=== PATIENT | male | born 1960 | race Caucasian/White ===

== ENCOUNTER 2021-06-25 07:48 | Emergency (ER) | payer OTHER ==
[~2021-06-25] VITALS: Ht 177.8 cm; Wt 83.9 kg
[2021-06-25 07:52] VITALS: BP_SYST 153
--- NOTE | 2021-06-25 07:57 | NUR ---
Patient to ER bed 8 to gown for evaluation. Side rails up. Report given to Angeles DUDLEY.
--- NOTE | 2021-06-25 08:00 | NUR ---
ER DR. CANADA AT THE BEDSIDE EXAMINING PT
--- NOTE | 2021-06-25 08:05 | NUR ---
PT CAME INTO ER C/O LEFT FLANK PAIN STARTING EARLY THIS AM, PT STATES HE HAS HAD MULTIPLE KIDNEY STONES IN THE PAST WITH LITHOTRIPSY AND STENT PLACEMENT. STATES THE PAIN WAS UNBEARABLE AT HOME. PT IS AMBULATORY, AAOX4, VSS
[2021-06-25] MEDS ORDERED: KETOROLAC TROMETHAMINE 30 MG VIAL IVP ONE (08:15)
[2021-06-25] MEDS ORDERED: MORPHINE 4 MG INJ. 4 MG/ML VIAL IVP ONE (08:15)
[2021-06-25] MEDS ORDERED: ONDANSETRON HCL 4 MG/2 ML VIAL IVP ONE (08:15)
[2021-06-25] MEDS ORDERED: NACL 0.9% 1,000 ML IV ONE (08:15)
[2021-06-25 08:35] LABS: BASOPHILS # (AUTO) 0.1 K/uL (0.0-0.2); BASOPHILS % (AUTO) 0.9 % (0.0-2.0); EOSINOPHILS # (AUTO) 0.2 K/uL (0.0-0.4); EOSINOPHILS % (AUTO) 2.1 % (0.0-4.0); HEMATOCRIT 44.8 % (36-54); HEMOGLOBIN 14.9 g/dL (14.0-18.0); LYMPHOCYTES # (AUTO) 1.8 K/uL (1.0-5.5); LYMPHOCYTES % (AUTO) 17.4 % (20.5-51.5); MEAN CORPUSCULAR HEMOGLOBIN 30 pg (27-31); MEAN CORPUSCULAR HGB CONC 33 % (32-36); MEAN CORPUSCULAR VOLUME 89 fL (79.0-98.0); MONOCYTES # (AUTO) 0.6 K/uL (0.0-1.0); MONOCYTES % (AUTO) 5.5 % (1.7-9.3); NEUTROPHILS # (AUTO) 7.5 K/uL (1.8-7.7); NEUTROPHILS % (AUTO) 74.1 % (40.0-70.0); PLATELET COUNT (AUTO) 209 K/uL (130-430); RED BLOOD CELL COUNT(AUTO) 5.01 MIL/uL (4.2-6.2); RED CELL DISTRIBUTION WIDTH 14.1 % (9.0-15.0); WHITE BLOOD COUNT (AUTO) 10.1 K/uL (4.8-10.8)
[2021-06-25] MEDS ORDERED: HYDROmorphone 1 MG/ML INJ. CARTRIDGE IVP ONE (08:45)
--- NOTE | 2021-06-25 09:05 | NUR ---
ULTRASOUND AT THE BEDSIDE
[2021-06-25 09:16] LABS: CALCIUM 9.5 mg/dL (8.4-11.0); CREATININE 1.15 mg/dL (0.55-1.30); POTASSIUM 4.4 mmol/L (3.5-5.1)
[2021-06-25 09:45] LABS: ALBUMIN 4.1 g/dL (3.4-4.8); TOTAL BILIRUBIN 0.4 mg/dL (0.0-1.0)
--- NOTE | 2021-06-25 10:00 | NUR ---
PT VOIDED IN BEDSIDE URINAL FOR URINE SPECIMEN
[2021-06-25 10:13] LABS: BILIRUBIN,URINE NEGATIVE (NEGATIVE); BLOOD, URINE NEGATIVE (NEGATIVE); CLARITY/URINE CLEAR (CLEAR); COLOR,URINE YELLOW (YELLOW); GLUCOSE,URINE NEGATIVE (NEGATIVE); KETONES,URINE NEGATIVE (NEGATIVE); LEUKOCYTE ESTERASE ,URINE NEGATIVE (NEGATIVE); NITRITE, URINE NEGATIVE (NEGATIVE); PROTEIN URINE NEGATIVE (NEGATIVE); UROBILINOGEN,URINE 0.2 (0.2-1.0)
[2021-06-25 10:48] VITALS: BP_SYST 153
== END 2021-06-25 10:48 | disposition home or self-care (01) ==
LOC: SED 07:48
DX: R10.9 Unspecified abdominal pain (principal); R74.8 Abnormal levels of other serum enzymes; Z88.8 Allergy status to other drugs, medicaments and biological substances
CPT/HCPCS: 36415; 76770; 80053; 81003; 83690; 85025; 96361; 96374; 96375; 99284; G0482; J1170; J1885; J2270; J2405; J7030

== ENCOUNTER 2021-06-27 05:36 | Emergency (ER) | payer OTHER ==
[~2021-06-27] VITALS: Ht 172.7 cm; Wt 81.6 kg
[2021-06-27 05:45] VITALS: BP_SYST 162
--- NOTE | 2021-06-27 05:53 | NUR ---
Patient to ER bed 3 to gown for evaluation. Side rails up. Report given to Jennifer DUDLEY (reg).
--- NOTE | 2021-06-27 05:55 | NUR ---
ER at bedside examining patient.
[2021-06-27 05:56] VITALS: BP_SYST 119
--- NOTE | 2021-06-27 05:56 | NUR ---
Pt alert and orieted x 4 , Pain 10/10 related to kidney stones , pt states started at 0400
[2021-06-27] MEDS ORDERED: NACL 0.9% 1,000 ML IV ONE (06:15)
[2021-06-27] MEDS ORDERED: MORPHINE 4 MG INJ. 4 MG/ML VIAL IVP ONE (06:15)
[2021-06-27] MEDS ORDERED: KETOROLAC TROMETHAMINE 30 MG VIAL IVP ONE (06:15)
[2021-06-27] MEDS ORDERED: ONDANSETRON HCL 4 MG/2 ML VIAL IVP ONE (06:30)
[2021-06-27] MEDS: MORPHINE 4 MG INJ. 4 MG/ML VIAL IVP PRN ×2 (06:45→08:05)
--- NOTE | 2021-06-27 07:14 | NUR ---
bedside report to carmen
--- NOTE | 2021-06-27 07:25 | NUR ---
Report rcvd at bedside from outgoing noc RN, all cares assumed (OCTAVIA Fisher)
[2021-06-27 07:27] LABS: BASOPHILS # (AUTO) 0.1 K/uL (0.0-0.2); BASOPHILS % (AUTO) 0.6 % (0.0-2.0); CALCIUM 8.8 mg/dL (8.4-11.0); CREATININE 1.04 mg/dL (0.55-1.30); EOSINOPHILS # (AUTO) 0.2 K/uL (0.0-0.4); EOSINOPHILS % (AUTO) 2.2 % (0.0-4.0); HEMATOCRIT 39.1 % (36-54); HEMOGLOBIN 13.2 g/dL (14.0-18.0); LYMPHOCYTES # (AUTO) 1.4 K/uL (1.0-5.5); LYMPHOCYTES % (AUTO) 13.3 % (20.5-51.5); MEAN CORPUSCULAR HEMOGLOBIN 30 pg (27-31); MEAN CORPUSCULAR HGB CONC 34 % (32-36); MEAN CORPUSCULAR VOLUME 90 fL (79.0-98.0); MONOCYTES # (AUTO) 0.7 K/uL (0.0-1.0); MONOCYTES % (AUTO) 6.4 % (1.7-9.3); NEUTROPHILS # (AUTO) 8.3 K/uL (1.8-7.7); NEUTROPHILS % (AUTO) 77.5 % (40.0-70.0); PLATELET COUNT (AUTO) 168 K/uL (130-430); POTASSIUM 4.2 mmol/L (3.5-5.1); RED BLOOD CELL COUNT(AUTO) 4.37 MIL/uL (4.2-6.2); WHITE BLOOD COUNT (AUTO) 10.8 K/uL (4.8-10.8)
[2021-06-27 07:32] LABS: ALBUMIN 3.4 g/dL (3.4-4.8); BILIRUBIN,DIRECT 0.1 mg/dL (0.0-0.3); TOTAL BILIRUBIN 0.2 mg/dL (0.0-1.0)
--- NOTE | 2021-06-27 07:46 | NUR ---
Patient taken to CT scan by Pia via W/C
--- NOTE | 2021-06-27 08:07 | NUR ---
Patient medicated with 4mg Morphine IVP per MD, patient reports 10/10 pain, patient grimacing, noted to be tearful. Patient remains on monitor, vitals stable, will continue to monitor.
--- NOTE | 2021-06-27 08:30 | NUR ---
Patient has been re-assessed, medication found to be effective
--- NOTE | 2021-06-27 09:05 | NUR ---
Patient report 3/10 pain, patient attempting to give urine sample.
--- NOTE | 2021-06-27 09:08 | NUR ---
Urine collected and dipped per
[2021-06-27] MEDS ORDERED: CEPH250C PO (09:15)
--- NOTE | 2021-06-27 09:17 | NUR ---
Urine dip results given to for review
--- NOTE | 2021-06-27 09:21 | NUR ---
Patient given written and verbal discharge instructions and verbalizes understanding. ER MD discussed with patient the results and treatment provided. Patient in stable condition. ID arm band removed. IV catheter removed intact and dressing applied, no active bleeding. Rx of given. Patient educated on pain management and to follow up with PMD. Pain Scale 2/10 Opportunity for questions provided and answered. Medication side effect fact sheet provided.
[2021-06-27 09:22] VITALS: BP_SYST 122
== END 2021-06-27 09:21 | disposition home or self-care (01) ==
LOC: SED 05:36
DX: N39.0 Urinary tract infection, site not specified (principal); N23 Unspecified renal colic; Z88.8 Allergy status to other drugs, medicaments and biological substances; Z79.899 Other long term (current) drug therapy
CPT/HCPCS: 36415; 74176; 76376; 80048; 80076; 81002; 83690; 85025; 96361; 96374; 96375; 96376; 99285; J1885; J2270; J2405; J7030

== ENCOUNTER 2021-08-09 10:54 | Inpatient (IN) | payer OTHER ==
[~2021-08-09] VITALS: Ht 177.8 cm; Wt 86.2 kg
[~2021-08-09 10:54] MED LIST: CEPH250C PO
[2021-08-09 10:55] VITALS: BP_SYST 140
--- NOTE | 2021-08-09 11:37 | NUR ---
Pt present to ED with complaint of L flank pain rated 8/10. status post prostectomy 1 week. AOx4 GCS 15. 20G IV intitiated. Pt presen to ED with shannon in place. Pt seen by ED physician at bedside.
[2021-08-09] MEDS ORDERED: KETOROLAC TROMETHAMINE 30 MG VIAL IVP ONE (11:45)
[2021-08-09] MEDS ORDERED: NACL 0.9% 1,000 ML IV ONE (11:45)
[2021-08-09] MEDS ORDERED: MORPHINE SULFATE 10 MG/ML VIAL IVP ONE (11:45)
[2021-08-09] MEDS ORDERED: ONDANSETRON HCL 4 MG/2 ML VIAL IVP ONE ×2 (11:45)
[2021-08-09 11:59] LABS: BASOPHILS # (AUTO) 0.1 K/uL (0.0-0.2); BASOPHILS % (AUTO) 0.6 % (0.0-2.0); EOSINOPHILS # (AUTO) 0.5 K/uL (0.0-0.4); EOSINOPHILS % (AUTO) 3.5 % (0.0-4.0); HEMATOCRIT 41.7 % (36-54); HEMOGLOBIN 14.2 g/dL (14.0-18.0); LYMPHOCYTES # (AUTO) 1.8 K/uL (1.0-5.5); LYMPHOCYTES % (AUTO) 13.3 % (20.5-51.5); MEAN CORPUSCULAR HEMOGLOBIN 31 pg (27-31); MEAN CORPUSCULAR HGB CONC 34 % (32-36); MEAN CORPUSCULAR VOLUME 90 fL (79.0-98.0); MONOCYTES # (AUTO) 0.9 K/uL (0.0-1.0); MONOCYTES % (AUTO) 7.1 % (1.7-9.3); NEUTROPHILS % (AUTO) 75.5 % (40.0-70.0); PLATELET COUNT (AUTO) 211 K/uL (130-430); RED BLOOD CELL COUNT(AUTO) 4.66 MIL/uL (4.2-6.2); RED CELL DISTRIBUTION WIDTH 13.8 % (9.0-15.0); WHITE BLOOD COUNT (AUTO) 13.2 K/uL (4.8-10.8)
[2021-08-09 12:04] LABS: CALCIUM 8.9 mg/dL (8.4-11.0); CREATININE 1.17 mg/dL (0.55-1.30); POTASSIUM 3.9 mmol/L (3.5-5.1)
[2021-08-09 12:10] LABS: ALBUMIN 3.5 g/dL (3.4-4.8)
[2021-08-09 13:16] LABS: BILIRUBIN,URINE NEGATIVE (NEGATIVE); BLOOD, URINE 1+ (NEGATIVE); CLARITY/URINE CLOUDY (CLEAR); COLOR,URINE YELLOW (YELLOW); GLUCOSE,URINE NEGATIVE (NEGATIVE); KETONES,URINE NEGATIVE (NEGATIVE); LEUKOCYTE ESTERASE ,URINE TRACE (NEGATIVE); NITRITE, URINE NEGATIVE (NEGATIVE); PROTEIN URINE 2+ (NEGATIVE)
[2021-08-09 13:53] LABS: BACTERIA,URINE FEW /HPF (None Seen)
[2021-08-09] MEDS ORDERED: cefTRIAXone 1 GM in D5W 50 ML IV ONE (14:15)
[2021-08-09] MEDS ORDERED: cefTRIAXone 1 GM VIAL ONE (14:17)
--- NOTE | 2021-08-09 15:09 | NUR ---
Admit bed requested Patient will be admitted to care of Admitted to MEDSURG unit. Diagnosis UTI Inpatient (Yes or No) YES Observation (Yes or No) Orientation concerns or request close to nursing station (Yes or No) Covid Status On vent or bipap Isolation requirements Needs a sitter From Home (Yes or if No enter name of facility) Requires Dialysis (Yes or No) Med Rec Completed (Yes of No)
[2021-08-09] MEDS ORDERED: MORPHINE 2 MG/ML INJ. SYRINGE IVP PRN ×2 (15:15→16:30)
[2021-08-09] MEDS: NACL 0.9% 1,000 ML IV SCH (15:31)
--- NOTE | 2021-08-09 16:20 | NUR ---
Telephone report called to Naresh Cooper @ [phone].
[2021-08-09] MEDS ORDERED: MAGNESIUM SULFATE 50 ML IV PRN (16:30)
[2021-08-09] MEDS ORDERED: MUPIROCIN 2% TOPICAL OINTMENT 22 GM NS PRN (16:30)
[2021-08-09] MEDS ORDERED: LORazepam 2 MG/ML VIAL IVP PRN (16:30)
[2021-08-09] MEDS ORDERED: ACETAMINOPHEN 325 MG TABLET PO PRN (16:30)
[2021-08-09] MEDS ORDERED: DOCUSATE SODIUM 100 MG CAPSULE PO PRN (16:30)
[2021-08-09] MEDS ORDERED: ZOLPIDEM TARTRATE 5 MG TABLET PO PRN (16:30)
[2021-08-09] MEDS ORDERED: POTASSIUM CHLORIDE 20 MEQ TAB.PRT.SR PO PRN (16:30)
[2021-08-09] MEDS ORDERED: NALOXONE HCL 0.4 MG/ML AMP (NARCAN) IVP PRN ×3 (16:30→19:45)
[2021-08-09] MEDS ORDERED: ONDANSETRON HCL 4 MG/2 ML VIAL IVP PRN (16:30)
--- NOTE | 2021-08-09 16:40 | NUR ---
patient discharged, taken home by mother, education provided to both, voiced understanding, stable at time of discharge, all belongings with patient, both ivs removed, transferred to car in wheelchair.
--- NOTE | 2021-08-09 16:42 | NUR ---
Patient will be admitted to care of Dr. Patton. Admitted to Med-surg unit. Will go to room 123B. Belongings list completed. Complete and up to date summary report printed. SBAR report to be given via telephone to Naresh DUDLEY .
--- NOTE | 2021-08-09 16:42 | NUR ---
Pt transported out of ED by EDT in no acute distress AOx4 GCS 15. IV in place infusing NS @ 100cc/hr.
--- NOTE | 2021-08-09 16:45 | NUR ---
patient admitted to med surg, no s/s of distress, a/ox4, ambulatory, shannon catheter, will admit. report from theresa from ER
[2021-08-09] MEDS ORDERED: DICYCLOMINE HCL 10 MG CAPSULE PO ONE (17:45)
[2021-08-09] MEDS ORDERED: DICYCLOMINE HCL 20 MG/2 ML AMP IM ONE (18:00)
[2021-08-09] MEDS ORDERED: cefTRIAXone 1 GM in D5W 50 ML IV SCH (18:00)
--- NOTE | 2021-08-09 18:18 | NUR ---
ASKED PHARMACY TO VERIFY IF PATIENT CAN BE GIVEN THE MORPHINE 1MG FOR BREAK THROUGH PAIN WITHIN THE 4 HOURS OF HAVING GIVEN THE 2MG OF MORPHINE IVP. PHARMACIST STATED IT IS OK TO GIVE THE MORPHINE 1MG NOW EVEN THOUGH IT HAS ONLY BEEN 2 HOURS SINCE THE 2MG IVP OF MORPHINE.
[2021-08-09 18:20] VITALS: BP_SYST 153
[2021-08-09] MEDS ORDERED: ASA81 PO (18:48)
[2021-08-09] MEDS ORDERED: OMEP20CA15 PO (18:48)
[2021-08-09] MEDS ORDERED: TAMS-11 PO (18:48)
--- NOTE | 2021-08-09 19:30 | NUR ---
OPENING NOTES: Patient received from AM shift. Patient is AA&Ox4 able to make needs known denies any chest pain or SOB. Chest rise is even and unlabored on RA. Normal hear sounds present on medsurg monitoring. Active bowel sounds x4, denies pain with palpation. Reports flank pain at 8/10. Patient is ambulatory and continent of bowel and bladder. Will administer pain relief for patient comfort as ordered. Will resume care and continue to monitor throughout the shift.
[2021-08-09] MEDS ORDERED: HYDROcodone/ACETAMIN 10-325 MG TAB PO PRN (19:45)
[2021-08-09 20:00] VITALS: BP_SYST 151
[2021-08-09] MEDS: MORPHINE 2 MG/ML INJ. SYRINGE IVP PRN (20:08)
[2021-08-09] MEDS: DICYCLOMINE HCL 10 MG CAPSULE PO SCH (20:48)
[2021-08-10 02:00] VITALS: BP_SYST 117
--- NOTE | 2021-08-10 06:23 | NUR ---
CLOSING NOTES: Patient is in bed resting no s/s of distress is noted at this time. Patient is AA&Ox4 able to make needs known, currently denies any pain or discomfort. All current shift needs have been met at this time and patient is stable. Safety protocols are in place and call light is within reach. Will differ further care to AM shift for continuity of care.
[2021-08-10 06:24] LABS: BASOPHILS % (AUTO) 0.5 % (0.0-2.0); EOSINOPHILS # (AUTO) 0.6 K/uL (0.0-0.4); EOSINOPHILS % (AUTO) 5.8 % (0.0-4.0); HEMATOCRIT 37.2 % (36-54); HEMOGLOBIN 12.8 g/dL (14.0-18.0); LYMPHOCYTES # (AUTO) 2.1 K/uL (1.0-5.5); MEAN CORPUSCULAR HEMOGLOBIN 31 pg (27-31); MEAN CORPUSCULAR HGB CONC 34 % (32-36); MEAN CORPUSCULAR VOLUME 90 fL (79.0-98.0); MONOCYTES # (AUTO) 0.9 K/uL (0.0-1.0); MONOCYTES % (AUTO) 8.7 % (1.7-9.3); NEUTROPHILS # (AUTO) 6.3 K/uL (1.8-7.7); PLATELET COUNT (AUTO) 182 K/uL (130-430); RED BLOOD CELL COUNT(AUTO) 4.12 MIL/uL (4.2-6.2); RED CELL DISTRIBUTION WIDTH 13.8 % (9.0-15.0); WHITE BLOOD COUNT (AUTO) 9.8 K/uL (4.8-10.8)
[2021-08-10 06:43] LABS: ALBUMIN 2.8 g/dL (3.4-4.8); CALCIUM 7.5 mg/dL (8.4-11.0); CREATININE 1.03 mg/dL (0.55-1.30); POTASSIUM 3.9 mmol/L (3.5-5.1); TOTAL BILIRUBIN 0.6 mg/dL (0.0-1.0)
--- NOTE | 2021-08-10 07:30 | NUR ---
PATIENT IN BED, NO S/S OF DISTRESS, A/O X4, PAIN 3/10 AT THIS TIME AND DOES NOT WANT ANY PAIN MEDICATION, ON ROOM AIR, ABDOMINAL INCISION CLEAN DRY INTACT, TO DRAINING CLEAR YELLOW URINE, SAFETY MEASURES IN PLACE, BED IN LOWEST LOCKED POSITION, CALL LIGHT WITHIN REACH WILL CONTINUE TO MONITOR.
[2021-08-10 08:00] VITALS: BP_SYST 133
[2021-08-10] MEDS: PANTOPRAZOLE SODIUM 40 MG TAB PO SCH (08:52)
[2021-08-10] MEDS: DICYCLOMINE HCL 10 MG CAPSULE PO SCH ×3 (08:52→20:56)
[2021-08-10 12:51] VITALS: BP_SYST 125
[2021-08-10] MEDS: NACL 0.9% 1,000 ML IV SCH ×2 (15:24→22:44)
[2021-08-10 16:30] VITALS: BP_SYST 128
--- NOTE | 2021-08-10 19:31 | NUR ---
OPENING NOTES: Patient received from AM shift. Patient is AA&Ox4 able to verbalize needs and denies any pain or discomfort at this time. Chest rise is even and unlabored on RA. Normal heart sounds present on Med surg monitoring. FC noted in place and draining yellow urine. Patient is disgruntled due to maintenance issue with the window of his room. Patient was offered many alternative in room selection but is is hard to please. Patient was then placed into room 118B and seems to be ok with current arrangement. Safety protocols have been placed and patient has call light within reach. Will continue to monitor throughout the shift.
[2021-08-10 20:00] VITALS: BP_SYST 129
[2021-08-10] MEDS: MORPHINE 2 MG/ML INJ. SYRINGE IVP PRN (22:41)
[2021-08-11 00:01] VITALS: BP_SYST 114; BP_SYST 157
--- NOTE | 2021-08-11 06:56 | NUR ---
CLOSING NOTES: Patient is in bed resting no s/s of distress is noted at this time. Patient is AA&Ox4 able to verbalize needs. All current shift needs have been met at this time. Safety protocols are in place and patient has call light within reach. Will differ further care to AM shift for continuity of care.
[2021-08-11 08:00] VITALS: BP_SYST 133
[2021-08-11 08:33] LABS: BASOPHILS # (AUTO) 0.1 K/uL (0.0-0.2); BASOPHILS % (AUTO) 0.6 % (0.0-2.0); EOSINOPHILS # (AUTO) 0.6 K/uL (0.0-0.4); EOSINOPHILS % (AUTO) 5.8 % (0.0-4.0); HEMATOCRIT 39.5 % (36-54); HEMOGLOBIN 13.6 g/dL (14.0-18.0); LYMPHOCYTES # (AUTO) 1.4 K/uL (1.0-5.5); LYMPHOCYTES % (AUTO) 13.3 % (20.5-51.5); MEAN CORPUSCULAR HEMOGLOBIN 31 pg (27-31); MEAN CORPUSCULAR HGB CONC 35 % (32-36); MEAN CORPUSCULAR VOLUME 89 fL (79.0-98.0); MONOCYTES # (AUTO) 0.6 K/uL (0.0-1.0); MONOCYTES % (AUTO) 5.9 % (1.7-9.3); NEUTROPHILS # (AUTO) 8.1 K/uL (1.8-7.7); NEUTROPHILS % (AUTO) 74.4 % (40.0-70.0); PLATELET COUNT (AUTO) 216 K/uL (130-430); RED BLOOD CELL COUNT(AUTO) 4.43 MIL/uL (4.2-6.2); RED CELL DISTRIBUTION WIDTH 13.8 % (9.0-15.0); WHITE BLOOD COUNT (AUTO) 10.9 K/uL (4.8-10.8)
[2021-08-11] MEDS: PANTOPRAZOLE SODIUM 40 MG TAB PO SCH (08:34)
[2021-08-11] MEDS: DICYCLOMINE HCL 10 MG CAPSULE PO SCH ×2 (08:34→15:07)
[2021-08-11 09:08] LABS: CALCIUM 8.7 mg/dL (8.4-11.0); CREATININE 1.05 mg/dL (0.55-1.30); POTASSIUM 3.8 mmol/L (3.5-5.1)
[2021-08-11 12:57] VITALS: BP_SYST 121; BP_SYST 149
[2021-08-11] MEDS: NACL 0.9% 1,000 ML IV SCH (15:08)
[2021-08-11 16:11] VITALS: BP_SYST 123
[2021-08-11] MEDS ORDERED: LEVO500T90 PO (17:28)
[2021-08-11 17:38] VITALS: BP_SYST 125
== END 2021-08-11 18:20 | disposition home or self-care (01) | DRG 690 ==
LOC: SED 10:54 → SMU 15:02
PROVIDERS: ADMIT General Practice; ATTEND General Practice
DX: N12 Tubulo-interstitial nephritis, not specified as acute or chronic (principal); C61 Malignant neoplasm of prostate; Z20.822 Contact with and (suspected) exposure to COVID-19; Z88.8 Allergy status to other drugs, medicaments and biological substances; Z79.899 Other long term (current) drug therapy; Z85.46 Personal history of malignant neoplasm of prostate; Z87.442 Personal history of urinary calculi; Z90.79 Acquired absence of other genital organ(s)
CPT/HCPCS: 36415; 71045; 76376; 80048; 80053; 81000; 83036; 83605; 83690; 83735; 85025; 87040; 87086; 93005; 96365; 96375; 96376; 99291; J0500; J0696; J1885; J1956; J2270; J2405; J7030; J7060

== ENCOUNTER 2021-08-13 13:53 | Inpatient (IN) | payer OTHER ==
[~2021-08-13] VITALS: Ht 177.8 cm; Wt 86.2 kg
[~2021-08-13 13:53] MED LIST changes: +ASA81 PO; -CEPH250C PO; +LEVO500T90 PO; +OMEP20CA15 PO; +TAMS-11 PO
[2021-08-13 14:22] VITALS: BP_SYST 147
--- NOTE | 2021-08-13 14:22 | NUR ---
Patient to ER bed 3 for evaluation. Side rails up. Report given to Tim DUDLEY.
[2021-08-13] MEDS ORDERED: NACL 0.9% 1,000 ML IV ONE (14:30)
[2021-08-13] MEDS ORDERED: MORPHINE 4 MG INJ. 4 MG/ML VIAL IVP ONE (14:30)
[2021-08-13] MEDS ORDERED: KETOROLAC TROMETHAMINE 30 MG VIAL IVP ONE (14:30)
--- NOTE | 2021-08-13 14:44 | NUR ---
Pt present to ED with complaint of flank pain and suprapubic pain rated 10/10. 20G IV initiated in field. ED physician seen pt at bedside
[2021-08-13] MEDS ORDERED: LIDOCAINE JECT 2% PF 100 MG/5ML SYRINGE IV ONE (14:45)
[2021-08-13 14:53] LABS: BASOPHILS # (AUTO) 0.1 K/uL (0.0-0.2); BASOPHILS % (AUTO) 1.4 % (0.0-2.0); EOSINOPHILS # (AUTO) 0.1 K/uL (0.0-0.4); EOSINOPHILS % (AUTO) 1.4 % (0.0-4.0); HEMATOCRIT 42.7 % (36-54); HEMOGLOBIN 14.4 g/dL (14.0-18.0); LYMPHOCYTES # (AUTO) 0.5 K/uL (1.0-5.5); LYMPHOCYTES % (AUTO) 5.6 % (20.5-51.5); MEAN CORPUSCULAR HEMOGLOBIN 30 pg (27-31); MEAN CORPUSCULAR HGB CONC 34 % (32-36); MEAN CORPUSCULAR VOLUME 90 fL (79.0-98.0); MONOCYTES # (AUTO) 0.4 K/uL (0.0-1.0); MONOCYTES % (AUTO) 4.2 % (1.7-9.3); NEUTROPHILS # (AUTO) 8.2 K/uL (1.8-7.7); NEUTROPHILS % (AUTO) 87.4 % (40.0-70.0); PLATELET COUNT (AUTO) 243 K/uL (130-430); RED BLOOD CELL COUNT(AUTO) 4.74 MIL/uL (4.2-6.2); RED CELL DISTRIBUTION WIDTH 14.3 % (9.0-15.0); WHITE BLOOD COUNT (AUTO) 9.4 K/uL (4.8-10.8)
[2021-08-13 14:58] LABS: CALCIUM 8.9 mg/dL (8.4-11.0); CREATININE 1.38 mg/dL (0.55-1.30); POTASSIUM 4.1 mmol/L (3.5-5.1)
[2021-08-13] MEDS ORDERED: ONDANSETRON HCL 4 MG/2 ML VIAL IVP ONE (15:00)
[2021-08-13 15:04] LABS: ALBUMIN 3.9 g/dL (3.4-4.8); TOTAL BILIRUBIN 0.3 mg/dL (0.0-1.0)
[2021-08-13] MEDS: MORPHINE 4 MG INJ. 4 MG/ML VIAL IVP PRN ×2 (16:10→18:54)
[2021-08-13] MEDS ORDERED: ONDANSETRON HCL 4 MG/2 ML VIAL IVP PRN (18:45)
[2021-08-13] MEDS ORDERED: KETAMINE 30 MG/3 ML SYRINGE 30 MG in NS 100 ML IV ONE (19:00)
[2021-08-13] MEDS ORDERED: MORPHINE 2 MG/ML INJ. SYRINGE IVP PRN (19:00)
[2021-08-13] MEDS ORDERED: 0.45% NACL 1,000 ML IV ONE (19:00)
--- NOTE | 2021-08-13 19:12 | NUR ---
Recieved report from OCTAVIA Dumont
[2021-08-13 19:53] VITALS: BP_SYST 122
[2021-08-13] MEDS ORDERED: PIPERACILLIN/TAZO 4.5 GM in NS 100 ML IV SCH (20:00)
--- NOTE | 2021-08-13 20:06 | NUR ---
Admit bed requested Patient will be admitted to care of Dr. Garcia. Admitted to med surg unit. Diagnosis kidney stones Inpatient (Yes or No) yes Observation (Yes or No) no Orientation concerns or request close to nursing station (Yes or No) no Covid Status neg On vent or bipap n/a Isolation requirements n/a Needs a sitter n/a From Home (Yes or if No enter name of facility) yes Requires Dialysis (Yes or No) n/a Med Rec Completed (Yes of No) n/a
--- NOTE | 2021-08-13 20:13 | NUR ---
Patient does not wish to proceed with medical care recommended by Dr. Baugh. Patient given information related to possible complications, up to and including , which could occur as a result of leaving hospital at this time. Patient verbalizes understanding of risks involved leaving against medical advice. Patient has signed AMA form. IV taken out and no issues at this time.
== END 2021-08-13 20:13 | disposition left against medical advice (07) | DRG 684 ==
LOC: SED 13:53 → SMU 18:47
PROVIDERS: ADMIT Internal Medicine Infectious Disease; ATTEND Internal Medicine Infectious Disease
DX: N17.9 Acute kidney failure, unspecified (principal); Z20.822 Contact with and (suspected) exposure to COVID-19; Z79.82 Long term (current) use of aspirin; Z79.899 Other long term (current) drug therapy; Z90.79 Acquired absence of other genital organ(s)
CPT/HCPCS: 36415; 76770; 80053; 83605; 85025; 87040; 96374; 99285; J1885; J2270; J2405

== ENCOUNTER 2021-10-05 07:24 | Emergency (ER) | payer OTHER ==
[~2021-10-05] VITALS: Ht 180.3 cm; Wt 36.7 kg
[2021-10-05] MEDS ORDERED: KETOROLAC TROMETHAMINE 30 MG VIAL IVP ONE (07:45)
[2021-10-05] MEDS ORDERED: NACL 0.9% 1,000 ML IV ONE (07:45)
[2021-10-05 07:50] VITALS: BP_SYST 160
--- NOTE | 2021-10-05 07:50 | NUR ---
PT BEING SEEN FOR C/O ABDOMINAL, GROIN, AND LEFT LEG 11/13. PT HAS HX OF KIDNEY STONES. PT IA AAOX4. ON R/A. NO COUGH OR SOB. ABDOMEN TENDER. DENIES N/V/D/C. IV CATH PLACED TO LAC 20G. LABS DRAWN, PT ENDORSED TO OCTAVIA DUCKWORTH.
[2021-10-05 07:54] LABS: BASOPHILS # (AUTO) 0.1 K/uL (0.0-0.2); BASOPHILS % (AUTO) 1.3 % (0.0-2.0); EOSINOPHILS # (AUTO) 0.2 K/uL (0.0-0.4); EOSINOPHILS % (AUTO) 1.6 % (0.0-4.0); HEMATOCRIT 39.9 % (36-54); HEMOGLOBIN 13.5 g/dL (14.0-18.0); LYMPHOCYTES # (AUTO) 3.4 K/uL (1.0-5.5); LYMPHOCYTES % (AUTO) 30.1 % (20.5-51.5); MEAN CORPUSCULAR HEMOGLOBIN 31 pg (27-31); MEAN CORPUSCULAR HGB CONC 34 % (32-36); MEAN CORPUSCULAR VOLUME 90 fL (79.0-98.0); MONOCYTES # (AUTO) 0.9 K/uL (0.0-1.0); MONOCYTES % (AUTO) 8.1 % (1.7-9.3); NEUTROPHILS # (AUTO) 6.7 K/uL (1.8-7.7); NEUTROPHILS % (AUTO) 58.9 % (40.0-70.0); PLATELET COUNT (AUTO) 205 K/uL (130-430); RED BLOOD CELL COUNT(AUTO) 4.44 MIL/uL (4.2-6.2); RED CELL DISTRIBUTION WIDTH 13.6 % (9.0-15.0); WHITE BLOOD COUNT (AUTO) 11.3 K/uL (4.8-10.8)
--- NOTE | 2021-10-05 07:57 | NUR ---
WALKED TO BED7 WITH CO LISA. FLANK, HX OF KIDNEY STONE. PT WAS ADMINISTERED WITH TORADOL PER MD ORDER. PT WAS TAKEN TO XRAY. PT STILL CO OF PAIN. DR. GARDNER AWARE.
[2021-10-05] MEDS ORDERED: PROCHLORPERAZINE EDISYLATE 10 MG/2 ML VIAL IVP ONE (08:15)
[2021-10-05] MEDS ORDERED: MORPHINE 4 MG INJ. 4 MG/ML VIAL IVP ONE ×2 (08:15→09:00)
[2021-10-05] MEDS ORDERED: KETAMINE 30 MG/3 ML SYRINGE IVP ONE (08:15)
[2021-10-05 08:24] LABS: CREATININE 1.24 mg/dL (0.55-1.30); POTASSIUM 4.2 mmol/L (3.5-5.1)
--- NOTE | 2021-10-05 08:27 | NUR ---
MORPHINE AND COMPAZINE ORDERED AND GIVEN. PT STATED PAIN STOPPED. KATAMINE ISN'T GIVEN SINCE PAIN STOPPED.
[2021-10-05 08:29] LABS: ALBUMIN 3.7 g/dL (3.4-4.8); TOTAL BILIRUBIN 0.2 mg/dL (0.0-1.0)
[2021-10-05] MEDS ORDERED: DIPHENHYDRAMINE INJ 50 MG/ML VIAL IVP ONE (09:00)
[2021-10-05 09:50] LABS: BILIRUBIN,URINE NEGATIVE (NEGATIVE); BLOOD, URINE 3+ (NEGATIVE); CLARITY/URINE CLEAR (CLEAR); COLOR,URINE YELLOW (YELLOW); GLUCOSE,URINE NEGATIVE (NEGATIVE); KETONES,URINE NEGATIVE (NEGATIVE); LEUKOCYTE ESTERASE ,URINE NEGATIVE (NEGATIVE); NITRITE, URINE NEGATIVE (NEGATIVE); PROTEIN URINE NEGATIVE (NEGATIVE); UROBILINOGEN,URINE 0.2 (0.2-1.0)
[2021-10-05 10:00] LABS: BACTERIA,URINE RARE /HPF (None Seen); MUCUS,URINE 1+ /LPF (None Seen); WBC,URINE 0-3 /HPF (0-3)
[2021-10-05] MEDS ORDERED: ONDA-8 TL (11:02)
[2021-10-05] MEDS ORDERED: HYDR-3917 PO (11:02)
[2021-10-05 11:15] VITALS: BP_SYST 150
--- NOTE | 2021-10-05 11:27 | NUR ---
Patient given written and verbal discharge instructions and verbalizes understanding. ER MD discussed with patient the results and treatment provided. Patient in stable condition. ID arm band removed. IV catheter removed intact and dressing applied, no active bleeding. Rx of HYDROCODONE, ZOFRAN given. Patient educated on pain management and to follow up with PMD. Pain Scale 4. Opportunity for questions provided and answered. Medication side effect fact sheet provided.
== END 2021-10-05 11:15 | disposition home or self-care (01) ==
LOC: SED 07:24
DX: N23 Unspecified renal colic (principal); N50.812 Left testicular pain; Z87.442 Personal history of urinary calculi; Z88.8 Allergy status to other drugs, medicaments and biological substances; Z79.899 Other long term (current) drug therapy
CPT/HCPCS: 99284; 74176; 96374; 96375; 96361; 80053; 81000; 85025; 36415; 76376; J1200; J1885; J0780; J2270; J7030

== ENCOUNTER 2021-12-08 08:12 | Inpatient (IN) | payer OTHER ==
[~2021-12-08] VITALS: Ht 177.8 cm; Wt 90.7 kg
[2021-12-08 08:12] VITALS: BP_SYST 162
[~2021-12-08 08:12] MED LIST changes: +HYDR-3917 PO; +LEVO-62 PO; -LEVO500T90 PO; +ONDA-8 TL
[2021-12-08 08:38] LABS: BASOPHILS # (AUTO) 0.1 K/uL (0.0-0.2); BASOPHILS % (AUTO) 1.2 % (0.0-2.0); EOSINOPHILS # (AUTO) 0.3 K/uL (0.0-0.4); EOSINOPHILS % (AUTO) 2.4 % (0.0-4.0); HEMATOCRIT 42.5 % (36-54); HEMOGLOBIN 14.7 g/dL (14.0-18.0); LYMPHOCYTES # (AUTO) 1.9 K/uL (1.0-5.5); LYMPHOCYTES % (AUTO) 18.3 % (20.5-51.5); MEAN CORPUSCULAR HEMOGLOBIN 31 pg (27-31); MEAN CORPUSCULAR HGB CONC 35 % (32-36); MEAN CORPUSCULAR VOLUME 89 fL (79.0-98.0); MONOCYTES # (AUTO) 0.6 K/uL (0.0-1.0); MONOCYTES % (AUTO) 5.9 % (1.7-9.3); NEUTROPHILS # (AUTO) 7.5 K/uL (1.8-7.7); NEUTROPHILS % (AUTO) 72.2 % (40.0-70.0); PLATELET COUNT (AUTO) 214 K/uL (130-430); RED BLOOD CELL COUNT(AUTO) 4.79 MIL/uL (4.2-6.2); RED CELL DISTRIBUTION WIDTH 13.6 % (9.0-15.0); WHITE BLOOD COUNT (AUTO) 10.4 K/uL (4.8-10.8)
[2021-12-08] MEDS ORDERED: NACL 0.9% 1,000 ML IV ONE (08:45)
[2021-12-08] MEDS ORDERED: MORPHINE SULFATE 10 MG/ML VIAL IVP ONE ×3 (08:45→12:00)
[2021-12-08 09:02] LABS: LIPASE 691 U/L (73-393)
[2021-12-08 09:07] LABS: CALCIUM 9.1 mg/dL (8.4-11.0); CREATININE 1.32 mg/dL (0.55-1.30); POTASSIUM 4.1 mmol/L (3.5-5.1)
[2021-12-08 09:13] LABS: ALBUMIN 3.9 g/dL (3.4-4.8); TOTAL BILIRUBIN 0.3 mg/dL (0.0-1.0)
[2021-12-08 09:38] LABS: ALCOHOL, BLOOD < 3 mg/dL (<10)
[2021-12-08] MEDS ORDERED: MORPHINE SULFATE 10 MG/ML VIAL IVP PRN (12:00)
[2021-12-08] MEDS: KCL 20 mEq in D5NS 1000 mL 1,000 ML IV SCH ×2 (12:23→23:44)
[2021-12-08 13:15] VITALS: BP_SYST 146
[2021-12-08 13:45] LABS: BILIRUBIN,URINE NEGATIVE (NEGATIVE); BLOOD, URINE 1+ (NEGATIVE); CLARITY/URINE CLEAR (CLEAR); COLOR,URINE YELLOW (YELLOW); GLUCOSE,URINE NEGATIVE (NEGATIVE); KETONES,URINE NEGATIVE (NEGATIVE); LEUKOCYTE ESTERASE ,URINE NEGATIVE (NEGATIVE); NITRITE, URINE NEGATIVE (NEGATIVE); PROTEIN URINE NEGATIVE (NEGATIVE); UROBILINOGEN,URINE 0.2 (0.2-1.0)
[2021-12-08 14:08] LABS: BACTERIA,URINE RARE /HPF (None Seen); MUCUS,URINE 1+ /LPF (None Seen); RBC,URINE 0-3 /HPF (0-3); WBC,URINE 0-3 /HPF (0-3)
[2021-12-08 16:00] VITALS: BP_SYST 146
[2021-12-08] MEDS: ONDANSETRON HCL 4 MG/2 ML VIAL IVP PRN ×2 (17:07→21:16)
[2021-12-08] MEDS ORDERED: MORPHINE 4 MG INJ. 4 MG/ML VIAL IVP PRN (19:30)
[2021-12-08] MEDS ORDERED: METOCLOPRAMIDE HCL 10 MG/2 ML VIAL IVP ONE (19:30)
[2021-12-08] MEDS ORDERED: PANTOPRAZOLE SODIUM 40 MG/VIAL (PROTONIX) IVP SCH (21:00)
[2021-12-08] MEDS ORDERED: ENOXAPARIN SODIUM 40 MG/0.4 ML SYRINGE SUBCUT SCH (21:00)
[2021-12-09 00:13] VITALS: BP_SYST 153
[2021-12-09 06:58] LABS: CALCIUM 8.5 mg/dL (8.4-11.0); CREATININE 1.07 mg/dL (0.55-1.30); POTASSIUM 3.7 mmol/L (3.5-5.1)
[2021-12-09 07:11] LABS: BASOPHILS # (AUTO) 0.1 K/uL (0.0-0.2); BASOPHILS % (AUTO) 0.7 % (0.0-2.0); EOSINOPHILS # (AUTO) 0.2 K/uL (0.0-0.4); EOSINOPHILS % (AUTO) 2.7 % (0.0-4.0); HEMATOCRIT 39.1 % (36-54); HEMOGLOBIN 13.4 g/dL (14.0-18.0); LYMPHOCYTES # (AUTO) 2.4 K/uL (1.0-5.5); LYMPHOCYTES % (AUTO) 28.6 % (20.5-51.5); MEAN CORPUSCULAR HEMOGLOBIN 31 pg (27-31); MEAN CORPUSCULAR HGB CONC 34 % (32-36); MEAN CORPUSCULAR VOLUME 90 fL (79.0-98.0); MONOCYTES # (AUTO) 0.6 K/uL (0.0-1.0); MONOCYTES % (AUTO) 7.2 % (1.7-9.3); NEUTROPHILS # (AUTO) 5.2 K/uL (1.8-7.7); NEUTROPHILS % (AUTO) 60.8 % (40.0-70.0); PLATELET COUNT (AUTO) 193 K/uL (130-430); RED BLOOD CELL COUNT(AUTO) 4.36 MIL/uL (4.2-6.2); RED CELL DISTRIBUTION WIDTH 13.2 % (9.0-15.0); WHITE BLOOD COUNT (AUTO) 8.5 K/uL (4.8-10.8)
[2021-12-09] MEDS ORDERED: KCL 20 mEq in D5NS 1000 mL 1,000 ML IV SCH (10:00)
== END 2021-12-09 08:42 | disposition left against medical advice (07) | DRG 440 ==
LOC: SED 08:12 → SMU 11:49
PROVIDERS: ADMIT Family Medicine; ATTEND Family Medicine
DX: K85.90 Acute pancreatitis without necrosis or infection, unspecified (principal); Z20.822 Contact with and (suspected) exposure to COVID-19; F17.210 Nicotine dependence, cigarettes, uncomplicated; Z85.46 Personal history of malignant neoplasm of prostate; Z90.79 Acquired absence of other genital organ(s); Z88.8 Allergy status to other drugs, medicaments and biological substances; Z79.899 Other long term (current) drug therapy
CPT/HCPCS: 36415; 74021; 76705; 80048; 80053; 81000; 82150; 83690; 83735; 85025; 96374; 96376; 99285; C9113; G0482; J1650; J2270; J2405; J2765

== ENCOUNTER 2022-03-29 20:00 | Emergency (ER) | payer OTHER ==
[~2022-03-29] VITALS: Ht 177.8 cm; Wt 90.7 kg
[~2022-03-29 20:00] MED LIST changes: -LEVO-62 PO
[2022-03-29 21:11] VITALS: BP_SYST 171
--- NOTE | 2022-03-29 21:19 | NUR ---
Patient triaged and placed in waiting room. VSS and patient appears in no acute distress at this time. Accompanied by , awaiting available bed, and MD notified of need for MSE.
--- NOTE | 2022-03-29 21:20 | NUR ---
RIMMA WILLARD Kwaw at bedside.
--- NOTE | 2022-03-29 21:25 | NUR ---
Patient to ER bed 8 to gown for evaluation. Side rails up. Report given to OCTAVIA Park.
--- NOTE | 2022-03-29 22:15 | NUR ---
Patient presents to ED from home with c/o trigeminal nerve pain to the Left side of face. Patient reports pain level 10/10 at this time. Patient reports nausea, denies vomiting. Patient A/Ox4, VSS, ambulatory, resp even and unlabored. Patient's at bedside. Patient resting in bed with safety precautions in place and connected to monitor. Nad noted at this time. ER MD Chávez made aware.
[2022-03-29] MEDS ORDERED: KETOROLAC TROMETHAMINE 60 MG/2 ML VIAL IM ONE (22:30)
[2022-03-29] MEDS ORDERED: MORPHINE 4 MG INJ. 4 MG/ML VIAL IM ONE (22:30)
[2022-03-29] MEDS ORDERED: ONDANSETRON 4 MG ODT TAB PO ONE (22:45)
--- NOTE | 2022-03-29 23:00 | NUR ---
Patient resting in bed with safety precautions in place and connected to monitor. Nad noted at this time.
[2022-03-29 23:24] VITALS: BP_SYST 165
--- NOTE | 2022-03-29 23:24 | NUR ---
Patient given written and verbal discharge instructions and verbalizes understanding. ER MD discussed with patient the results and treatment provided. Patient in stable condition. ID arm band removed. Patient educated on pain management and to follow up with PMD. Pain Scale 6/10. Opportunity for questions provided and answered. Medication side effect fact sheet provided. Patient A/Ox4, VSS, ambulatory, resp even and unlabored. Nad noted at this time. Patient accompanied by and in stable condition upon discharge.
== END 2022-03-29 23:24 | disposition home or self-care (01) ==
LOC: SED 20:00
DX: G50.0 Trigeminal neuralgia (principal); R51.9 Headache, unspecified; F17.200 Nicotine dependence, unspecified, uncomplicated; Z88.8 Allergy status to other drugs, medicaments and biological substances; Z79.899 Other long term (current) drug therapy
CPT/HCPCS: 99284; 96372; Q0162; J1885; J2270

== ENCOUNTER 2022-08-03 09:57 | Emergency (ER) | payer OTHER ==
[~2022-08-03] VITALS: Ht 180.3 cm; Wt 99.8 kg
[~2022-08-03 09:57] MED LIST changes: +CIPR250T4 PO
[2022-08-03] MEDS ORDERED: MORPHINE 4 MG INJ. 4 MG/ML VIAL IVP ONE ×2 (10:15→10:45)
[2022-08-03] MEDS ORDERED: NACL 0.9% 1,000 ML IV ONE (10:15)
[2022-08-03] MEDS ORDERED: ONDANSETRON HCL 4 MG/2 ML VIAL ONE (10:21)
[2022-08-03 10:29] LABS: BASOPHILS # (AUTO) 0.1 K/uL (0.0-0.2); EOSINOPHILS # (AUTO) 0.2 K/uL (0.0-0.4); EOSINOPHILS % (AUTO) 2.3 % (0.0-4.0); HEMATOCRIT 43.8 % (36-54); HEMOGLOBIN 15.2 g/dL (14.0-18.0); LYMPHOCYTES # (AUTO) 1.9 K/uL (1.0-5.5); LYMPHOCYTES % (AUTO) 26.2 % (20.5-51.5); MEAN CORPUSCULAR HEMOGLOBIN 32 pg (27-31); MEAN CORPUSCULAR HGB CONC 35 % (32-36); MEAN CORPUSCULAR VOLUME 92 fL (79.0-98.0); MONOCYTES # (AUTO) 0.6 K/uL (0.0-1.0); MONOCYTES % (AUTO) 7.7 % (1.7-9.3); NEUTROPHILS # (AUTO) 4.6 K/uL (1.8-7.7); NEUTROPHILS % (AUTO) 62.8 % (40.0-70.0); PLATELET COUNT (AUTO) 211 K/uL (130-430); RED BLOOD CELL COUNT(AUTO) 4.77 MIL/uL (4.2-6.2); RED CELL DISTRIBUTION WIDTH 13.4 % (9.0-15.0); WHITE BLOOD COUNT (AUTO) 7.4 K/uL (4.8-10.8)
[2022-08-03] MEDS ORDERED: ONDANSETRON HCL 4 MG/2 ML VIAL IVP ONE (10:45)
[2022-08-03 10:51] LABS: CALCIUM 8.4 mg/dL (8.4-11.0); CREATININE 1.15 mg/dL (0.55-1.30)
[2022-08-03 10:55] LABS: ALBUMIN 3.9 g/dL (3.4-4.8); TOTAL BILIRUBIN 0.3 mg/dL (0.0-1.0)
[2022-08-03 11:37] LABS: BILIRUBIN,URINE NEGATIVE (NEGATIVE); CLARITY/URINE CLEAR (CLEAR); COLOR,URINE YELLOW (YELLOW); GLUCOSE,URINE NEGATIVE (NEGATIVE); KETONES,URINE NEGATIVE (NEGATIVE); LEUKOCYTE ESTERASE ,URINE NEGATIVE (NEGATIVE); NITRITE, URINE NEGATIVE (NEGATIVE); PH,URINE 7.5 (5.0-8.0); PROTEIN URINE NEGATIVE (NEGATIVE); UROBILINOGEN,URINE 0.2 (0.2-1.0)
[2022-08-03 11:41] LABS: BLOOD, URINE TRACE (NEGATIVE)
[2022-08-03 12:35] LABS: BARBITURATE, URINE NEGATIVE (NEG <=200)
[2022-08-03 12:36] LABS: BENZODIAZEPINE, URINE NEGATIVE (NEG <=150); CANNABINOID, URINE POSITIVE (NEG <=50); COCAINE, URINE NEGATIVE (NEG <=150); METHAMPHETAMINES SCREEN,URINE NEGATIVE (NEG <=500); OPIATE, URINE POSITIVE (NEG <=100); PHENCYCLIDINE SCREEN,URINE NEGATIVE (NEG <=25); UR TRICYCLIC ANTIDEPRESSANTS NEGATIVE (NEG <=300); URINE AMPHETAMINE NEGATIVE (NEG <=500); URINE METHADONE NEGATIVE (NEG <=200); URINE OXYCODONE SCREEN NEGATIVE (NEG <=100); URINE PROPOXYPHENE SCREEN NEGATIVE (NEG <=300)
[2022-08-03 13:09] LABS: BACTERIA,URINE RARE /HPF (None Seen); RBC,URINE 0-3 /HPF (0-3); WBC,URINE NONE SEEN /HPF (0-3)
[2022-08-03 13:28] VITALS: BP_SYST 149
== END 2022-08-03 13:32 | disposition home or self-care (01) ==
LOC: SED 09:57
DX: N23 Unspecified renal colic (principal); K21.9 Gastro-esophageal reflux disease without esophagitis; Z88.8 Allergy status to other drugs, medicaments and biological substances; Z79.899 Other long term (current) drug therapy
CPT/HCPCS: 99285; 74176; 96374; 96361; 96375; 80307; 80053; 83690; 85025; 36415; 76376; 81000; J2405; J2270; J7030

== ENCOUNTER 2023-01-30 06:51 | Emergency (ER) | payer OTHER ==
[~2023-01-30] VITALS: Ht 180.3 cm; Wt 104.3 kg
[2023-01-30 07:00] VITALS: BP_SYST 161; PULSE 92; RESP 25; TEMP 98.8; O2SAT 95
[2023-01-30] MEDS ORDERED: HYDROmorphone 1 MG/ML INJ. CARTRIDGE IVP ONE ×2 (07:15→10:45)
[2023-01-30] MEDS ORDERED: ONDANSETRON HCL 4 MG/2 ML VIAL IVP ONE (07:30)
[2023-01-30 07:31] LABS: BASOPHILS # (AUTO) 0.1 K/uL (0.0-0.2); BASOPHILS % (AUTO) 0.6 % (0.0-2.0); EOSINOPHILS # (AUTO) 0.3 K/uL (0.0-0.4); EOSINOPHILS % (AUTO) 2.9 % (0.0-4.0); HEMATOCRIT 46.9 % (36-54); HEMOGLOBIN 15.5 g/dL (14.0-18.0); LYMPHOCYTES # (AUTO) 2.4 K/uL (1.0-5.5); LYMPHOCYTES % (AUTO) 27.4 % (20.5-51.5); MEAN CORPUSCULAR HEMOGLOBIN 31 pg (27-31); MEAN CORPUSCULAR HGB CONC 33 % (32-36); MEAN CORPUSCULAR VOLUME 94 fL (79.0-98.0); MONOCYTES # (AUTO) 0.7 K/uL (0.0-1.0); MONOCYTES % (AUTO) 8.4 % (1.7-9.3); NEUTROPHILS # (AUTO) 5.2 K/uL (1.8-7.7); NEUTROPHILS % (AUTO) 60.7 % (40.0-70.0); PLATELET COUNT (AUTO) 226 K/uL (130-430); RED BLOOD CELL COUNT(AUTO) 4.99 MIL/uL (4.2-6.2); RED CELL DISTRIBUTION WIDTH 13.5 % (9.0-15.0); WHITE BLOOD COUNT (AUTO) 8.6 K/uL (4.8-10.8)
[2023-01-30 07:50] LABS: ALBUMIN 3.9 g/dL (3.4-4.8); CALCIUM 9.1 mg/dL (8.4-11.0); CREATININE 1.14 mg/dL (0.55-1.30); POTASSIUM 4.4 mmol/L (3.5-5.1); TOTAL BILIRUBIN 0.2 mg/dL (0.0-1.0); TOTAL PROTEIN, SERUM 7.2 g/dL (6.4-8.3)
[2023-01-30] MEDS ORDERED: KETOROLAC TROMETHAMINE 30 MG VIAL IVP ONE (08:15)
[2023-01-30 10:15] LABS: BILIRUBIN,URINE NEGATIVE (NEGATIVE); BLOOD, URINE NEGATIVE (NEGATIVE); CLARITY/URINE CLEAR (CLEAR); COLOR,URINE YELLOW (YELLOW); GLUCOSE,URINE NEGATIVE (NEGATIVE); KETONES,URINE NEGATIVE (NEGATIVE); LEUKOCYTE ESTERASE ,URINE NEGATIVE (NEGATIVE); NITRITE, URINE NEGATIVE (NEGATIVE); PH,URINE 6.5 (5.0-8.0); PROTEIN URINE TRACE (NEGATIVE); UROBILINOGEN,URINE 0.2 (0.2-1.0)
[2023-01-30 10:37] LABS: BACTERIA,URINE FEW /HPF (None Seen); RBC,URINE NONE SEEN /HPF (0-3); WBC,URINE NONE SEEN /HPF (0-3)
[2023-01-30] MEDS ORDERED: CIPR-260 PO (10:43)
[2023-01-30] MEDS ORDERED: METR-154 PO (10:43)
[2023-01-30] MEDS ORDERED: HYDR-3917 PO (10:44)
[2023-01-30 11:06] VITALS: BP_SYST 153; PULSE 76; RESP 20; TEMP 98.1; O2SAT 95
== END 2023-01-30 11:08 | disposition home or self-care (01) ==
LOC: SED 06:51
DX: K52.9 Noninfective gastroenteritis and colitis, unspecified (principal); R10.9 Unspecified abdominal pain; K21.9 Gastro-esophageal reflux disease without esophagitis; Z88.8 Allergy status to other drugs, medicaments and biological substances; Z85.46 Personal history of malignant neoplasm of prostate; Z79.899 Other long term (current) drug therapy
CPT/HCPCS: 99285; 74176; 96374; 96375; 80053; 81001; 85025; 36415; 76376; 81000; 81015; J1885; J2405; J1170

== ENCOUNTER 2023-08-12 09:13 | Emergency (ER) | payer OTHER ==
[~2023-08-12] VITALS: Ht 180.3 cm; Wt 99.8 kg
[~2023-08-12 09:13] MED LIST changes: +CIPR-260 PO; +METR-154 PO
[2023-08-12 09:23] VITALS: BP_SYST 144; PULSE 91; RESP 18; TEMP 97.6; O2SAT 95
[2023-08-12] MEDS: NACL 0.9% 1,000 ML IV ONE (09:46)
[2023-08-12] MEDS: KETOROLAC TROMETHAMINE 30 MG VIAL IVP ONE (09:46)
[2023-08-12 09:48] LABS: BASOPHILS # (AUTO) 0.1 K/uL (0.0-0.2); EOSINOPHILS # (AUTO) 0.2 K/uL (0.0-0.4); HEMATOCRIT 45.3 % (36-54); HEMOGLOBIN 15.8 g/dL (14.0-18.0); LYMPHOCYTES # (AUTO) 2.4 K/uL (1.0-5.5); LYMPHOCYTES % (AUTO) 29.1 % (20.5-51.5); MEAN CORPUSCULAR HEMOGLOBIN 33 pg (27-31); MEAN CORPUSCULAR HGB CONC 35 % (32-36); MEAN CORPUSCULAR VOLUME 93 fL (79.0-98.0); MONOCYTES # (AUTO) 0.6 K/uL (0.0-1.0); MONOCYTES % (AUTO) 6.8 % (1.7-9.3); NEUTROPHILS % (AUTO) 61.1 % (40.0-70.0); PLATELET COUNT (AUTO) 238 K/uL (130-430); RED BLOOD CELL COUNT(AUTO) 4.85 MIL/uL (4.2-6.2); RED CELL DISTRIBUTION WIDTH 13.1 % (9.0-15.0); WHITE BLOOD COUNT (AUTO) 8.2 K/uL (4.8-10.8)
[2023-08-12 09:58] LABS: CALCIUM 9.3 mg/dL (8.4-11.0); CREATININE 1.24 mg/dL (0.55-1.30); POTASSIUM 4.2 mmol/L (3.5-5.1)
[2023-08-12] MEDS: HYDROmorphone 1 MG/ML INJ. CARTRIDGE IVP ONE ×2 (10:02→11:05)
[2023-08-12] MEDS: ONDANSETRON HCL 4 MG/2 ML VIAL IVP ONE (11:06)
[2023-08-12] MEDS ORDERED: TAMS-11 PO (11:23)
[2023-08-12 12:15] VITALS: BP_SYST 153; PULSE 73; RESP 20; TEMP 97.8; O2SAT 94
== END 2023-08-12 12:15 | disposition home or self-care (01) ==
LOC: SED 09:13
DX: N23 Unspecified renal colic (principal); K21.9 Gastro-esophageal reflux disease without esophagitis; Z87.442 Personal history of urinary calculi; Z85.46 Personal history of malignant neoplasm of prostate; Z88.8 Allergy status to other drugs, medicaments and biological substances; Z79.899 Other long term (current) drug therapy; Z79.2 Long term (current) use of antibiotics
CPT/HCPCS: 99285; 74176; 96374; 96375; 96361; 80048; 85025; 36415; 96376; J1885; J2405; J1170; J7030